=== PATIENT | male | born 1980 | race Caucasian/White ===

== ENCOUNTER 2018-12-03 12:52 | Emergency (ER) | payer OTHER ==
[2018-12-03] MEDS ORDERED: Fluor-I-Strip/Ful-Flo OP ONE (12:56)
[2018-12-03] MEDS ORDERED: Eye-Stream Solution ONE (12:56)
[2018-12-03] MEDS ORDERED: TETRACAINE 0.5% STERI-UNIT SOL OP ONE (12:56)
[2018-12-03 13:11] VITALS: BP 130/107; PULSE 87; O2SAT 100
--- NOTE | 2018-12-03 13:25 | ERPHSYRPT ---
- History of Present Illness Time Seen by Provider: 12/03/18 13:20 Source: patient Exam Limitations: no limitations Patient Subjective Stated Complaint: unknown possible FB in left eye at work. red and irritated. blurred vision Triage Nursing Assessment: alert and oriented sussy got something in his eye while at work. works at the [employer]. noted red and irritated. states blurred vision. Physician History: mild irritation in left eye for 2 hrs today, no known injury, does not wear contacts, no fever Allergies/Adverse Reactions: No Known Drug Allergies Allergy (Unverified 10/12/15 06:14) Hx Influenza Vaccination/Date Given: No Hx Pneumococcal Vaccination/Date Given: No Immunizations Up to Date: (unknown) - Review of Systems Constitutional: No Fever Eyes: Eye Pain, Eye Redness, Foreign Body Sensation, No Discharge Respiratory: No Dyspnea Cardiac: No Chest Pain Abdominal/Gastrointestinal: No Abdominal Pain, No Nausea, No Vomiting - Past Medical History Pertinent Past Medical History: No - Past Surgical History Past Surgical History: No - Social History Smoking Status: Never smoker Exposure to second hand smoke: No Drug Use: none Patient Lives Alone: No - Nursing Vital Signs Nursing Vital Signs: Initial Vital Signs Temperature 98 F 12/03/18 13:03 Pulse Rate 87 12/03/18 13:03 Respiratory Rate 16 12/03/18 13:03 Blood Pressure 130/107 12/03/18 13:03 O2 Sat by Pulse Oximetry 100 12/03/18 13:03 Pain Scale Pain Intensity 3 - Physical Exam General Appearance: no apparent distress Vision Acuity Degree Evaluation Phase: Uncorrected Vision Acuity Right Eye: 20/30 Vision Acuity Left Eye: 20/200 Eye Exam: left eye: conjunctival inflammation, corneal abrasion, foreign body, bilateral eye: PERRL, EOMI Neck Exam: normal inspection Respiratory Exam: No respiratory distress Cardiovascular Exam: regular rate/rhythm Extremity Exam: normal range of motion Neurologic: alert, oriented x 3, cooperative Skin Exam: normal color, warm, dry SpO2 Interpretation: normal SpO2: 100 - Course Nursing assessment & vital signs reviewed: Yes Ordered Tests: Medication Summary Discontinued Medications Generic Name Dose Route Start Last Admin Trade Name Freq PRN Reason Stop Dose Admin Eye Irrigation Solution Confirm 12/03/18 12:56 Eye-Stream Solution Administered 12/03/18 12:57 Dose 30 ml .ROUTE .STK-MED ONE Fluorescein Sodium Confirm 12/03/18 12:56 Pdmvz-[id number]-Emfgz/Ful-Tomás Administered 12/03/18 12:57 Dose 1 mg OP .STK-MED ONE Tetracaine HCl Confirm 12/03/18 12:56 Tetracaine 0.5% Steri-Unit Laida Administered 12/03/18 12:57 Dose 4 ml OP .STK-MED ONE - Progress Progress: unchanged Progress Note: 12/03/18 13:24 tetracaine and fluorescin show embedded fb and corneal abrasion on the left, slit lamp is unavailable, Dr Lr will see the pt in his office now, shanice Counseled pt/family regarding: diagnosis, need for follow-up - Departure Departure Disposition: Home Clinical Impression: Eye foreign body Qualifiers: Encounter type: initial encounter Laterality: left Qualified Code(s): T15.92XA - Foreign body on external eye, part unspecified, left eye, initial encounter Condition: Good Critical Care Time: No Referrals: DOCTOR,NO FAMILY [Primary Care Provider] - Instructions: Foreign Body in Eye (DC)
== END 2018-12-03 13:46 | disposition home or self-care (01) ==
LOC: ED 12:52
DX: T15.92XA Foreign body on external eye, part unspecified, left eye, initial encounter (principal); T15.02XA Foreign body in cornea, left eye, initial encounter; W45.8XXA Other foreign body or object entering through skin, initial encounter; Y93.89 Activity, other specified; Y92.64 Mine or pit as the place of occurrence of the external cause; Y99.0 Civilian activity done for income or pay
CPT/HCPCS: 99283; A9270-GY

== ENCOUNTER 2020-05-21 05:59 | Day surgery (SDC) | payer OTHER ==
[2020-05-21] MEDS ORDERED: Lactated Ringers 1,000 ML IV SCH (07:00)
[2020-05-21] MEDS ORDERED: DIPRIVAN 200 MG/20 ML IV ONE ×2 (07:56→08:10)
[2020-05-21] MEDS ORDERED: Versed 2 MG/2 ML Injection ONE (07:56)
[2020-05-21 08:18] LABS: ANION GAP 10.7 MEQ/L (5-15); BLOOD UREA NITROGEN 13 mg/dL (9-20); CHLORIDE 106 mmol/L (98-107); Calcium 9.5 mg/dL (8.4-10.2); Carbon Dioxide 25 mmol/L (22-30); Cholesterol 223 mg/dL (50-200); Creatinine 1 0.98 mg/dL (0.66-1.25); EST GLOMERULAR FILTRATION RATE > 60.0 ML/MIN; Glucose 116 mg/dL (74-106); HDL CHOLESTEROL 41 mg/dL (40-60); LDL, DIRECT 132 mg/dL (30-100); Potassium 4.1 mmol/L (3.5-5.1); Risk Ratio 5.5; SODIUM 138 mmol/L (137-145); TRIGLYCERIDE 258 mg/dL (30-150)
[2020-05-21 09:03] VITALS: O2SAT 97
[2020-05-21 09:04] VITALS: BP 121/71; PULSE 63
--- NOTE | 2020-05-21 15:22 | OP ---
SURGERY DATE/TIME: 05/21/2020 0758 PREOPERATIVE DIAGNOSIS: Screening exam. POSTOPERATIVE DIAGNOSIS: Normal colon. PROCEDURE: Colonoscopy. SURGEON: Dr. Pressley. ANESTHESIA: MAC. Medications given by anesthesia department. HISTORY: The patient is a 39 year old white male who presents now for his first screening colonoscopy. He reports his mother had colon cancer at age 41 also. The patient was felt the need to have endoscopic evaluation. He was appraised of the risks of the procedure including the risk of perforation, phlebitis, untoward reaction to medication, bleeding and missed lesions. The patient verbalized his understanding and desired to have the procedure performed. DESCRIPTION OF PROCEDURE: The patient was given the medications by the anesthesia department. He had continuous pulse oximetry, ECG monitoring, intermittent blood pressure monitoring and tidal CO2 monitoring during the examination. He was placed in the left lateral decubitus position. A digital rectal examination was performed and revealed normal anal sphincter tone, no masses and normal prostate. The flexible Olympus pediatric colonoscope was used to intubate the rectum. A view of the colon was developed sequentially to the cecum. Upon insertion and withdrawal, including a retroflex view in the rectum, no mucosal lesions were encountered. The scope was removed from the patient who tolerated the procedure well and was sent back to OP recovery in good condition. The prep was noted to be fair to good. We were able to clean out most of the colon with just flushing and suctioning being able to see nearly all of the colon.
== END 2020-05-21 09:05 | disposition home or self-care (01) ==
LOC: SDC 05:59
PROVIDERS: ATTEND Family Medicine
DX: Z12.11 Encounter for screening for malignant neoplasm of colon (principal); Z80.0 Family history of malignant neoplasm of digestive organs; Z00.00 Encounter for general adult medical examination without abnormal findings; K21.9 Gastro-esophageal reflux disease without esophagitis; Z79.899 Other long term (current) drug therapy
CPT/HCPCS: 36415; 80048; 80061; 83721; J2250; J2704